=== PATIENT | male | born 1965 | race Caucasian/White ===

== ENCOUNTER 2017-05-24 05:47 | Day surgery (SDC) | payer OTHER ==
[2017-05-24] MEDS ORDERED: CEFAZOLIN 1 GM INJ (07:00)
[2017-05-24] MEDS ORDERED: EPHEDrine SULFATE 50 MG/5 ML SYG (07:00)
[2017-05-24 07:15] LABS: PARTIAL THROMBOPLASTIN TIME 29.9 Sec (25.0-35.0); PROTIME 13.3 Sec (11.9-14.9)
[2017-05-24] MEDS ORDERED: CEFAZOLIN 2 GM/50 ML (PMX) 50 ML IVPB (07:30)
[2017-05-24] MEDS ORDERED: MIDAZOLAM 1 MG/ML 2 ML INJ (07:36)
[2017-05-24] MEDS ORDERED: FENTAnyl 50 MCG/ML VIAL (07:36)
[2017-05-24] MEDS ORDERED: PROPOFOL 20 ML (07:53)
[2017-05-24] MEDS ORDERED: LIDOCAINE 2% (SDV) 5 ML INJ (07:56)
[2017-05-24] MEDS ORDERED: METOCLOPRAMIDE 10 MG INJ (07:57)
[2017-05-24] MEDS ORDERED: ONDANSETRON 4 MG INJ (07:57)
[2017-05-24] MEDS ORDERED: ONDANSETRON 4 MG INJ IV (08:30)
[2017-05-24] MEDS ORDERED: KETOROLAC 15 MG INJ IV (08:30)
[2017-05-24] MEDS ORDERED: METOCLOPRAMIDE 10 MG INJ IV (08:30)
[2017-05-24] MEDS ORDERED: FENTAnyl 50 MCG/ML VIAL IV ×2 (08:30)
[2017-05-24] MEDS ORDERED: HYDROmorphONE (0.2 MG/ML) 10ML SYG IV ×2 (08:30)
[2017-05-24] MEDS ORDERED: HYDROCODONE/APAP (5/325) TAB PO (09:00)
[2017-05-24] MEDS: BUPIVACAINE 0.5% (SDV) 30 ML INJ (09:30)
== END 2017-05-24 09:50 | disposition home or self-care (01) ==
LOC: SDS 05:47
DX: N43.3 Hydrocele, unspecified (principal)
CPT/HCPCS: 55040; 85610; 85730; 88104; 88304